=== PATIENT | female | born 1985 | race Hispanic/Latino ===

== ENCOUNTER 2020-10-18 06:56 | Emergency (ER) | payer SELFPAY ==
--- OUTSIDE RECORDS SUMMARY | 2020-10-18 07:01 | XMS REPORT | Continuity of Care Document ---
:1985 Author Organization [facility] t Address [address] [place] [address] Care Team Providers Name Role Phone Ted Webber Attending Clinician Ted Webber Admitting Clinician Problems Condition Condition Condition Status Onset Resolution Last Treating Co mments Source Name Details Category Date Date Treatment Clinician Date BACK PAIN Diagnosis Active 2017-032018-02-11 Memoria -15 07:30:00 l BACK 00:00: Homer PAIN 00 Active 02/11/2018 [facility] [place][note 2] LEUKOCYTOS Diagnosis Active 2017-032018-04-12 Memoria IS, 04-13 14:35:00 l THROMBOCYT 00:00: [place] n OPENIA, LEUKOCYTOS 00 PELVIC M IS, THROMBOCYT OPENIA, PELVIC M Active 02/11/2018 [facility] [place][note 2] Pelvic Pelvic Disease Active 2017- Henson pain pain 5-23 Health 00:00: 00 Severe Problem 2018-09-12 Memor ia sepsis 13:16:02 l without Severe Homer septic sepsis shock without septic shock 09/12/2018 [facility] [place][note 2] Type 2 Problem 2018-09-12 Memor ia diabetes 13:16:02 l mellitus Type 2 [place] n with diabetes hyperglyce mellitus adal with hyperglyce adal 09/12/2018 [facility] [place][note 2] Hypovolemi Problem 2018-09-12 M emoria a 13:16:02 l Homer Hypovolemi a 09/12/2018 [facility] [place][note 2] Anxiety Problem 2018-09-12 Yefri joaquin disorder, 13:16:02 l unspecifie Anxiety Her green d disorder, unspecifie d 09/12/2018 [facility] [place][note 2] Iron Problem 2018-09-12 Memor ia deficiency 13:16:02 l anemia, Iron Homer unspecifie deficiency d anemia, unspecifie d 09/12/2018 [facility] [place][note 2] Methicilli Problem 2018-09-12 M emoria n 13:16:02 l susceptibl [place] e Methicilli Staphyloco n ccus susceptibl aureus e infection Staphyloco as the ccus cause of aureus diseases infection classified as the elsewhere cause of diseases classified elsewhere 09/12/2018 [facility] [place][note 2] Essential Problem 2018-09-12 Me moria (primary) 13:16:02 l hypertensi [place] n on Essential (primary) hypertensi on 09/12/2018 [facility] [place][note 2] 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) 13:16:02 l use of Long Jomar oral term hypoglycem (current) ic drugs use of oral hypoglycem ic drugs 09/12/2018 [facility] [place][note 2] Thrombocyt Problem 2018-09-12 M emoria openia, 13:16:02 l unspecifie [place] n d Thrombocyt openia, unspecifie d 09/12/2018 [facility] [place][note 2] ELEVATED Diagnosis Active 2018-04-12 M emoria WHITE 14:35:00 l BLOOD CELL ELEVATED He rmann COUNT, WHITE UNSPECI BLOOD CELL COUNT, UNSPECI Active [facility] [place][note 2] THROMBOCYT Diagnosis Active 2018-04-12 Memoria OPENIA, 14:35:00 l UNSPECIFIE [place] n D THROMBOCYT OPENIA, UNSPECIFIE D Active [facility] [place][note 2] INTRA-ABD Diagnosis Active 2018-04-12 Memoria AND PELVIC 14:35:00 l SWELLING, Homer MASS AND INTRA-ABD AND PELVIC SWELLING, MASS AND Active [facility] [place][note 2] Toxic Problem 2018-09-12 Memor ia encephalop 13:16:02 l athy Toxic Jomar encephalop athy 9 [facility] [place][note 2] Cutaneous Problem 2018-09-12 Me moria abscess of 13:16:02 l buttock Homer Cutaneous abscess of buttock 09/12/2018 [facility] [place][note 2] Cutaneous Problem 2018-09-12 Me moria abscess of 13:16:02 l right Jomar lower limb Cutaneous abscess of right lower limb 09/12/2018 [facility] [place][note 2] Cellulitis Problem 2018-09-12 M emoria of 13:16:02 l unspecifie [place] n d part of Cellulitis limb of unspecifie d part of limb 9 [facility] [place][note 2] Syndrome Problem 2018-09-12 Mem oria of 13:16:02 l inappropri Syndrome He rmann ate of secretion inappropri of ate antidiuret secretion ic hormone of antidiuret ic hormone 09/12/2018 [facility] [place][note 2] Mass of Mass of Disease Active [place] urethra urethra Health Urethral Urethral Disease Active [facility] s diverticul diverticul He alth um um Type 2 Type 2 Disease Active [place] diabetes diabetes Health mellitus mellitus with with complicati complicati on, on, without without long-term long-term current current use of use of insulin insulin History of Past Illness Condition Condition Condition Status Onset Resolution Last Treating Co mments Source Name Details Category Date Date Treatment Clinician Date Sepsis, Problem 2017-2018-09-12 2018-09-12 Memoria unspecifie 2-04 13:16:02 13:16:02 l d organism Sepsis, 04:42: Her green unspecifie 00 d organism 03/02/2018 09/12/2018 [facility] [place][note 2] Allergies, Adverse Reactions, Alerts This patient has no known allergies or adverse reactions. Family History Family Member Diagnosis Comments Start Date Stop Date Source Natural father Diabetes Merged with [facility] Social History Social Habit Start Date Stop Date Quantity Comments Source Sex Assigned At [facility] alth Tobacco use and 2018-09-09 2018-09-09 Never used [facility] alth exposure 00:00:00 00:00:00 Alcohol intake 2018-09-09 2018-09-09 Current drinker [facility] 00:00:00 00:00:00 of alcohol (finding) History [facility] Food 2018-09-09 2018-09-09 1 [facility] Worry 00:00:00 00:00:00 History [facility] Food 2018-09-09 2018-09-09 1 [facility] Scarcity 00:00:00 00:00:00 Social History 2018-02-11 2018-02-11 [facility] ermann 16:26:22 16:26:22 Smoking Status Start Date Stop Date Source Never smoker [facility] Medications Ordered Filled Start Stop Current Ordering Indication Dosage Frequency Signature Comments Components Source Medication Medication Date Date Medication? Clinician (SIG) Name Name metFORMIN 2018- Yes Type 2 500mg QD Take 1 Александр ris (GLUCOPHAGE 6-13 diabetes tablet by Health XR) 500 mg 00:00: mellitus mouth ER extended 00 with daily release complicatio (with tablet n, without breakfast) long-term . current use of insulin traZODone Yes Insomnia, 50mg Take 1 H arris (DESYREL) 09-09 unspecified tablet by [facility] 50 mg 00:00: type mouth tablet 00 nightly at bedtime as needed for Sleep. lisinopril 2017-03 Yes 20 mg = 1 Me moria 20 mg oral 1-27 tab, PO, l tablet 16:31: Daily, # Jomar 00 30 tab, 3 Refill(s), Pharmacy: [facility] [id number] fructooligo 2017-03 Yes 1 tab, Yefri joaquin saccharide -27 CHEW, BID, l 200 MG / 15:49: # 28 tab, Herm haris Lactobacill 00 0 us Refill(s), acidophilus Pharmacy: [id number] [facility] Chewable 2256 Tablet Aspirin 81 2017-03 Yes 81 mg = 1 Me moria MG Enteric -27 tab, PO, l Coated 15:49: Daily, Homer Tablet 00 just for 30 days due to high platelets. Followup w/ primary doctor for labs check., # 30 tab, 0 Refill(s), Pharmacy: [facility] ferrous 2017-03 Yes 325 mg = 1 Yefri joaquin sulfate 325 1-27 tab, PO, l mg oral 15:49: Daily, # [place] n enteric 00 30 tab, 0 coated Refill(s), tablet Pharmacy: [facility] BD 1.4 qt 2017-03 Yes 1 Maggi de jesus home sharps 04-25 MISC, l container 15:42: Q30D, Use Her green 00 for disposal of needles, # 1 ea, 11 Refill(s), Pharmacy: [facility] 2256 Blood 2017-03 Yes 1 box, Saloria Glucose 04-25 MISC, l Test Strips 15:42: TID-Before Jomar 00 Meals, # 100 strip, 3 Refill(s), Pharmacy: [facility] insulin 2017-03 Yes 15 unit, Memori a isophane 04-25 SUB-Q, l (NPH) 100 15:42: BID, # 10 Her green units/mL 00 mL, 3 human Refill(s), recombinant Pharmacy: [facility] suspension 2256 Accu-Chek 2017-03 Yes , # 100 Memor ia Safe-T Pro+ 04-25 ea, l Lancets 15:42: Insulin Jomar 00 dependent, Does not use insulin pump, Last DM eval date 02/23/18, 11 Refill(s), Pharmacy: [facility] Diabetes 2017-03 Yes 1 ea, Memoria Self-Mangem 04-25 MISC, l ent 15:42: Daily, # 1 Jomar Training 00 ea, 0 Refill(s), Pharmacy: [facility] Mini-Pen 2017-03 Yes 1 box, Memoria Ozan 04-25 MISC, l Ultra Fine 15:42: Daily, Monica ortega 06/12 in, 31 00 dispense 1 gauge box of 90 needles, # 1 box, 3 Refill(s), Pharmacy: [facility] Insulin 2017-03 Yes 1 syr, Memoria Syringes (U 04-25 SUB-Q, l 100) 15:42: ONCALL, # Jomar 00 100 syr, 3 Refill(s), Pharmacy: [facility] Alprazolam 2017-03 No 0.5 mg = 1 M emoria 0.5 MG Oral 04-25 tab, PO, l Tablet 15:42: TID, PRN Jomar [Xanax] 00 Anxiety, X 10 day, # 30 tab, 0 Refill(s) Alcohol 2017-03 Yes 1 ea, TOP, Yefri joaquin Pads/Swabs 04-25 PRN, PRN l Misc/Other 15:42: As Jomar 00 directed by physician, # 100 ea, 11 Refill(s), Pharmacy: [facility] Docusate 2017-03 No 2 tab, PO, Mem oria Sodium 50 04-25 Daily, PRN l MG / 15:42: Constipati Jomar sennosides, 00 on, X 10 INTERMEDIATE 8.6 MG day, # 20 Oral Tablet tab, 1 Refill(s), Pharmacy: [facility] Glucose 2017-03 Yes 1 ea, Memoria Control 04-25 MISC, l Solution 15:42: Daily, # 1 Her green 00 ea, 0 Refill(s), Pharmacy: [facility] Alprazolam 2017-03 No Notes: Memor ia 0.5 MG Oral 04-25 With food l Tablet 15:41: or milk Jomar [Xanax] 00 (Same as: Xanax) Acetaminoph 2017-03 No 1 tab, PO, Memoria en 300 MG / 04-24 Q6H, PRN l Codeine 19:07: pain, X 5 Monica nn Phosphate 00 day, # 20 30 MG Oral tab, 0 Tablet Refill(s) [Tylenol with Codeine #3] Ondansetron 2017-03 Yes 4 mg = 1 Me moria 4 MG Oral 04-24 tab, PO, l Tablet 19:07: QID, PRN Jomar [Zofran] 00 Nausea & Vomiting, # 20 tab, 0 Refill(s), Pharmacy: [facility] cefdinir 2017-03 No 300 mg = 1 Mem oria 300 MG Oral 04-24 cap, PO, l Capsule 19:07: Q12H, X 14 Herm haris day, # 28 cap, 0 Refill(s), Pharmacy: [facility] Hydromorpho 2017-03 No Notes: Yefri joaquin ne 04-23 Same as l 16:20: Dilaudid Jomar 00 Dilaudid 2017-03 No Notes: Memoria 04-22 Same as l 19:09: Dilaudid Jomar 00 ketOROLAC 2017-03 No 4 days Memor ia 30 mg/mL 04-21 l injectable 18:00: MEDICATION H ermann solution WASTE Product Size: 30 mg Product Wasted: ___ mg acetaminoph 2017-03 No Notes: Do M emoria en-hydrocod 04-21 not exceed l one 17:00: 4gm/day of Jomar acetaminop hen. (Same as: Arrey 325/10) Dilaudid 2017-03 No Notes: Memoria 04-21 Same as l 16:16: Dilaudid Jomar 00 tramadol 50 2017-03 No Notes: Not Memoria mg oral 04-21 to exceed l tablet 16:15: 400mg/day. Monica nn 00 (Same As: Ultram) Humulin N 2017-03 No Notes: Memori a -22 Roll in l 15:00: palms of Jomar 00 hands gently; Do not shake vigorously . (Same as: Humulin N) Do not hold insulin without contacting prescriber WASTE: F/P - Black; E - Municipal Trash Bin Stable for 28 days at room temperatur e Expires in days from ____Date Humulin N 2017-03 No Notes: Memori a 1-21 Roll in l 23:00: palms of Homer 00 hands gently; Do not shake vigorously . (Same as: Humulin N) Do not hold insulin without contacting prescriber WASTE: F/P - Black; E - Municipal Trash Bin Stable for 28 days at room temperatur e Expires in days from ____Date Dilaudid 2017-03 No Notes: Memoria 1-21 Same as l 01:10: Dilaudid Jomar 00 Senokot S 2017-03 No Notes: Memori a 1-20 (Same as l 18:30: Senokot-S) Homer 00 Equiv. to Louise-Colac e. Lovenox 2017-03 No Notes: Memoria 1-20 (Same as: l 15:00: Lovenox) Homer 00 Potassium 2017-03 No Notes: Memori a Chloride 1-20 (Same as: l 13:41: K-Dur 20) Homer 00 "Do Not Crush" For patients unable to swallow tablet, dissolve in one half glass of water. Allow about 2 minutes for the tablets to disintegra te. Stir before giving to prepare slurry and administer . Please exclude Patient s with feeding tube less than 14 [place] (Dobhoff, J-tube etc) and pediatric and patients. With food and full glass of water Trazodone 2017-03 No Notes: Memori a 1-20 (Same As: l 03:11: Desyrel) Jomar Dextrose 2017-03 No 25 gm, 50 Yefri joaquin 50% Syringe 1-19 mL, Route: l 19:49: IVP, Drug Form: INJ, Dosing Weight 95.455, kg, PRN, PRN Blood Glucose Results, Start date: 02/15/18 13:49:00 MACHINE SORTER, Duration: 30 day, Stop date: 03/17/18 13:48:00 MACHINE SORTER Glucagon 2017-03 No 1 mg, Memoria 04-17 Route: IM, l 19:49: Drug form: PDR/INJ, PRN, Dosing Weight 95.455, kg, PRN Blood Glucose Results, Start date: 02/15/18 13:49:00 MACHINE SORTER, Duration: 30 day, Stop date: 03/17/18 13:48:00 MACHINE SORTER Insulin 2017-03 No Notes: Memoria Lispro - (Same as: l 19:49: Humalog ) Roll in palms of hands gently; Do not shake `vigorousl y. "Single Patient Use Only " WASTE: F/P - Black; E - Municipal Trash Bin Stable for 28 days at room temperatur e. Expires in days from ____Date Nafcillin 2017-03 No 2 gm, Memoria 04-17 Route: l 18:00: IVPB, Q6H, Dosing Weight 95.455, kg, Start date: 02/15/18 12:00:00 MACHINE SORTER, Stop date: 03/17/18 8:00:00 MACHINE SORTER Diphenhydra 2017-03 No Notes: Yefri joaquin mine 04-17 (Same as: l 04:36: Benadryl) Alprazolam 2017-03 No Notes: Memor ia 0.25 MG 04-16 With food l Oral Tablet 15:57: or milk Her green [Xanax] 00 (Same as: Xanax) potassium 2017-03 No Notes: Memori a phosphate -18 (Same as: l 15:08: K Phosphate. ) Do not infuse phosphorou s concurrent ly in the same line as TPN or IVF that contains calcium. For double lumen central lines, phosphorou s may be infused in a separate lumen from TPN. 1 mMol phoshate has 1.47 mEq potassium Infuse over 4 hours Folic Acid 2017-03 No Notes: Memor ia 1-17 (Same as: l 15:00: Folvite) Thiamine 2017-03 No Notes: Memoria 1-17 (Same As: l 15:00: Vitamin B1) multivitami 2017-03 No Notes: Yefri joaquin n with 1-17 (Same l minerals 15:00: as:Thera-M Her green 00 , Theragran- M) WASTE: F/P - Black; E - Municipal Trash Bin Give with food. Sodium 2017-03 No 250 mL, Memoria Chloride 04-15 Rate: To l 0.9% 10:16: prime line Jomar (titrate) 00 and flush 250 mL remaining blood products., Dosing Weight 95.455, kg, Route: IV, Total Volume: 250, Priority: Routine, Start Date: 02/13/18 4:16:00 MACHINE SORTER, Duration: 30 day, Stop date: 03/15/18 4:15:00 MACHINE SORTER, Replace Every: 24 hr Calcium 2017-03 No Notes: Memoria Carbonate 04-14 (Same As: l 500 MG 17:48: Tums) Jomar Chewable 00 Calcium Tablet Carbonate 500 mg = 200 mg elemental calcium Dose = mg calcium carbonate ( mg elemental calcium) Calcium 2017-03 No Notes: Memoria Gluconate 04-14 WASTE: F/P l 17:48: - Sink; E Jomar 00 - Municipal Trash Bin Magnesium 2017-03 No Notes: Memori a Oxide 04-14 (Same as: l 17:48: Mag-Ox Homer 00 400) Magnesium oxide 778qu=727m g elemental magnesium Dose=____m g magnesium oxide (___mg elemental magnesium) potassium 2017-03 No Notes: Memori a phosphate 04-14 (Same as: l 17:48: K Homer 00 Phosphate. ) Do not infuse phosphorou s concurrent ly in the same line as TPN or IVF that contains calcium. For double lumen central lines, phosphorou s may be infused in a separate lumen from TPN. 1 mMol phoshate has 1.47 mEq potassium Infuse over 4 hours Magnesium 2017-03 No Notes: Memori a Sulfate 04-14 WASTE: F/P l 17:48: - Sink; E Homer 00 - Municipal Trash Bin potassium 2017-03 No Notes: Memori a phosphate-s 16 (Same as: l odium 17:48: Phos-NaK) Jomar phosphate 00 Each 1.5 250 mg-280 gm pkt has mg-160 mg 250mg oral powder phosphorou for s. Mix reconstitut w/2.5oz ion water and stir. Potassium 2017-03 No Notes: Memori a Chloride -16 Infuse at l 17:48: a rate of Jomar 00 10 mEq/hr. (Same as: KCL) sodium 2017-03 No Notes: Memoria phosphate 1-16 Infuse l 17:48: over 4 Homer 00 hour. Do not infuse phosphorou s concurrent ly in the same line as TPN or IVF that contains calcium. For double lumen central lines, phosphorou s may be infused in a separate lumen from TPN. Insulin 2017-03 No Notes: Memoria Glargine -16 (Same as: l 100 UNT/ML 16:00: Lantus) Do H ermann Injectable 00 not hold Solution insulin without contacting prescriber WASTE: F/P - Black; E - Municipal Trash Bin "single patient use only" Zofran 2017-03 No Notes: Memoria 1-16 (Same as: l 15:55: Zofran) Jomar 00 MEDICATION WASTE Product Size: 4 mg Product Wasted: ___ mg Lisinopril 2017-03 No Notes: Memor ia -16 (Same as: l 15:00: Prinivil, Homer 00 Zestril) heparin 2017-03 No Notes: Memoria 1-16 porcine l 03:00: heparin Homer Dextrose 2017-03 No 12.5 gm, Memor ia 50% Syringe -16 25 mL, l 01:04: Route: Jomar 00 IVP, Drug Form: INJ, Dosing Weight 95.455, kg, PRN, PRN Blood Glucose Results, Start date: 02/11/18 19:04:00 MACHINE SORTER, Duration: 30 day, Stop date: 03/13/18 19:03:00 MACHINE SORTER Insulin 2017-03 No Notes: Memoria regular 100 1-16 (Same as: l unit + 01:04: Humulin R [place] n Sodium 00 and Chloride NovoLIN R) 0.9% WASTE: (titrate) F/P - 99 mL Black; E - Municipal Trash Bin (Do not shake) Protonix 2017-03 No Notes: For Mem oria 1-15 IV push l 22:30: reconstitu Homer 00 te with 10 ml 0.9% sodium chloride and push over 2 minutes. (Same as: Protonix) Zosyn 2017-03 No Notes: Memoria 1-15 (Same as: l 22:00: Zosyn) Jomar 00 Dosing based on Piperacill in component MEDICATION WASTE Product Size: 3375 mg Product Wasted: _0__ mg Vancomycin 2017-03 No 2000 mg: Me moria 1-15 infuse l 22:00: over 2.5 Homer 00 hours Dextrose 2017-03 No 25 gm, 50 Yefri joaquin 50% Syringe 1-15 mL, Route: l 21:39: IVP, Drug Homer 00 Form: INJ, Dosing Weight 95.455, kg, PRN, PRN Blood Glucose Results, Start date: 02/11/18 15:39:00 MACHINE SORTER, Duration: 30 day, Stop date: 03/13/18 15:38:00 MACHINE SORTER Glucagon 2017-03 No 1 mg, Memoria 1-15 Route: IM, l 21:39: Drug form: Homer 00 PDR/INJ, PRN, Dosing Weight 95.455, kg, PRN Blood Glucose Results, Start date: 02/11/18 15:39:00 MACHINE SORTER, Duration: 30 day, Stop date: 03/13/18 15:38:00 MACHINE SORTER Insulin 2017-03 No Notes: Memoria Lispro 1-15 (Same as: l 21:39: Humalog ) Jomar 00 Roll in palms of hands gently; Do not shake `vigorousl y. "Single Patient Use Only " WASTE: F/P - Black; E - Municipal Trash Bin Stable for 28 days at room temperatur e. Expires in days from ____Date Acetaminoph 2017-03 No 100.4 F, M emoria en 1-15 Start l 21:28: date: Homer 00 02/11/18 15:28:00 MACHINE SORTER, Duration: 30 day, Stop date: 03/13/18 15:27:00 MACHINE SORTER Sodium 2017-03 No 2,863.65 Memoria Chloride 1-15 mL, l 0.9% 21:27: 2863.65 Jomar (Bolus) IV 00 ml/hr, Infuse Over: 1 hr, Route: IV, 3.65, Drug form: INJ, ONCE, Priority: STAT, Dosing Weight 95.455 kg, Start date: 02/11/18 15:27:00 MACHINE SORTER, Stop date: 02/11/18 15:27:00 MACHINE SORTER Acetaminoph 2017-03 No Notes: Yefri joaquin en 325 MG / -15 (Same as: l Hydrocodone 17:03: Arrey Monica nn Bitartrate 00 325/5) Do 5 MG Oral not exceed Tablet 4gm/day of acetaminop hen. Dilaudid 2017-03 No Notes: Memoria 1-15 Same as l 17:01: Dilaudid Jomar 00 NS 1,000 mL 2017-03 No 1,000 mL, M emoria 15 Rate: 40 l 17:00: ml/hr, Homer 00 Infuse over: 25 hr, Route: IV, Dosing Weight 95.455 kg, Total Volume: 1,000, Start date: 02/11/18 11:00:00 MACHINE SORTER, Duration: 30 day, Stop date: 03/13/18 11:00:00 MACHINE SORTER, 2.12, m2 Acetaminoph 2017-03 No Notes: Do M emoria en -15 not exceed l 16:59: 4 gm/day. Jomar 00 (Same as: Tylenol) Morphine 2017-03 No Notes: Memoria 15 (Same l 16:10: as:MORPhin Jomar 00 e Sulfate) ibuprofen 2017-03 No 600 mg = 1 Me moria 600 mg oral 1-15 tab, PO, l tablet 14:23: Q6H, PRN Jomar 00 Pain, take with food, # 30 tab, 0 Refill(s) Metformin 2017-03 No 500 mg = 1 Me moria hydrochlori 1-15 tab, PO, l de 500 MG 14:21: Daily, 0 Herm haris Oral Tablet 00 Refill(s) lisinopril 2017-03 No 20 mg = 1 Me moria 20 mg oral 1-15 tab, PO, l tablet 14:20: Daily, # Homer 00 90 tab, 0 Refill(s) Famotidine 2017-03 Yes 20 mg = 1 Me moria 20 MG Oral 1-15 tab, PO, l Tablet 14:19: Daily, # Jomar [Pepcid] 00 60 tab, 0 Refill(s) Morphine 2017-03 No 4 mg, Memoria 1-15 Route: l 13:52: IVP, ONCE, Jomar 00 Dosing Weight 90.909, kg, Priority: STAT, Start date: 02/11/18 7:52:00 MACHINE SORTER, Stop date: 02/11/18 7:52:00 MACHINE SORTER Sodium 2017-03 No 1,000 mL, Memori a Chloride 1-15 1000 l 0.9% 12:33: ml/hr, Jomar (Bolus) IV 00 Infuse Over: 1 hr, Route: IV, 1,000, Drug form: INJ, ONCE, Priority: STAT, Dosing Weight 90.909 kg, Start date: 02/11/18 6:33:00 MACHINE SORTER, Stop date: 02/11/18 6:33:00 MACHINE SORTER Saline 2017-03 No Notes: Memoria Flush 0.9% 1-15 (Same as: l 12:33: BD Homer Posiflush) Morphine 2017-03 No Notes: Memoria 1-15 (Same l 12:33: as:MORPhin e Sulfate) Ondansetron 2017-03 No Notes: Yefri joaquin 1-15 (Same as: l 12:33: Zofran) Jomar 00 MEDICATION WASTE Product Size: 4 mg Product Wasted: ___ mg cyclobenzap 2017-03 Yes Acute 10mg Take 1 Александр ris rine 1-02 left-sided tablet by [facility] (FLEXERIL) 00:00: low back mouth 3 10 mg 00 pain, with times tablet sciatica daily as presence needed for unspecified Muscle Spasms. predniSONE 2017-03 Yes Acute 40 mg Harri s (DELTASONE) 1-02 left-sided daily PO [facility] 20 mg 00:00: low back 3 days tablet 00 pain, with followed sciatica by 20 mg presence PO daily X unspecified 3days with breakfast. acetaminoph Yes Pelvic pain 1{tbl} Take 1 Henson en-codeine 5-26 tablet [address] [facility] (TYLENOL/CO 00:00: mouth DEINE #3) 00 every 4 300-30 mg hours as per tablet needed for Pain. ondansetron 2014-03 Yes Epigastric 4mg Take 1 Henson (ZOFRAN) 4 2-01 abdominal tablet by [facility] mg tablet 00:00: pain mouth 00 every 8 hours as needed for up to 7 doses for Nausea. Immunizations Ordered Immunization Filled Immunization Date Status Commen ts Source Name Name PPV 23 (Pneumococcal 2018-09-09 Completed [facility] Polysaccharide 23 00:00:00 Valent) Vital Signs Vital Name Observation Time Observation Value Comments Source Respitory Rate 2018-02-23 17:33:00 Memori al Jomar Systolic (mm Hg) 2018-02-23 17:33:00 Yefri rial Jomar Diastolic (mm Hg) 2018-02-23 17:33:00 Mem orial Homer Heart Rate 2018-02-23 17:33:00 [facility] Jomar Temperature Oral (F) 2018-02-23 17:33:00 98.3 F [facility] [place] Respitory Rate 2018-02-23 13:21:00 Memori al Homer Systolic (mm Hg) 2018-02-23 13:21:00 Yefri rial Homer Diastolic (mm Hg) 2018-02-23 13:21:00 Mem orial Jomar Temperature Oral (F) 2018-02-23 13:21:00 98.6 F Memorial Jomar Heart Rate 2018-02-23 13:21:00 [facility] [place] Heart Rate 2018-02-23 10:00:00 [facility] Jomar Respitory Rate 2018-02-23 10:00:00 Memori al Jomar Temperature Oral (F) 2018-02-23 10:00:00 98.4 F [facility] [place] Systolic (mm Hg) 2018-02-23 10:00:00 Yefri rial Homer Diastolic (mm Hg) 2018-02-23 10:00:00 Mem orial Homer BMI Calculated 2018-02-11 16:22:00 Memori al Homer Weight 2018-02-11 16:22:00 [facility] Jomar Height 2018-02-11 16:22:00 165.1 cm Memorial Homer BMI Calculated 2018-02-11 11:53:00 Memori al Homer Weight 2018-02-11 11:53:00 [facility] Jomar Height 2018-02-11 11:53:00 165.1 cm [facility] Jomar Procedures This patient has no known procedures. Plan of Care Planned Activity Planned Date Details Comments Source Future Scheduled Test 2020-12-28 00:00:00 IMM Influenza Seasonal [facility] Dec to May (>/= 19 yrs) [code = IMM Influenza Seasonal Dec to May (>/= 19 yrs)] Future Scheduled Test 2019-09-10 00:00:00 Hemoglobin A1c [facility] measurement (procedure) [code = 76001227] Future Scheduled Test 2019-09-10 00:00:00 Urine screening for [facility] protein (procedure) [code = 046375388] Future Scheduled Test 2019-09-10 00:00:00 DM Retinal Exam [facility] (Yearly) [code = DM Retinal Exam (Yearly)] Future Scheduled Test 2015 00:00:00 Screening for [facility] malignant neoplasm of cervix (procedure) [code = 877547867] Future Scheduled Test 2015 00:00:00 Screening for [facility] malignant neoplasm of cervix (procedure) [code = 405916413] Future Scheduled Test 2003 00:00:00 DM Foot Exam (Yearly) [facility] [code = DM Foot Exam (Yearly)] Future Scheduled Test 1997 00:00:00 COVID-19 Vaccine (1) [facility] [code = COVID-19 Vaccine (1)] Encounters Start End Encounter Admission Attending Care Care Encounter Source Date/Time Date/Time Type Type Clinicians Facility Department ID 2018-09-09 2018-09-09 Outpatient [facility] [id number] [place] 00:00:00 00:00:00 Health 2018-06-23 2018-06-23 Outpatient [facility] [id number] [place] 00:00:00 00:00:00 Health 2018-06-04 2018-06-04 Outpatient [facility] [id number] [place] 00:00:00 00:00:00 Health 2018-02-11 2018-02-23 Outpatient [facility] [id number] 05:46:00 14:30:00 Justin Pugh Chim[place]nneze 2018-01-29 2018-01-29 Emergency [facility] MED [id number] [place] 12:48:40 12:48:40 [facility] 2016-08-19 2016-08-19 Emergency [facility] [id number] [place] 14:53:00 14:53:00 Health Results Test Description Test Time Test Comments Results Result Comments Source ANEMIA STUDY 2018-02-23 76 [facility] 12:55:00 [place] ANEMIA STUDY 2018-02-23 10 [facility] 12:55:00 Jomar ANEMIA STUDY 2018-02-23 244 [facility] 12:55:00 [place] ANEMIA STUDY 2018-02-23 219 [facility] 12:55:00 Jomar ANEMIA STUDY 2018-02-23 25 [facility] 12:55:00 [place] ELECTROLYTES 2018-02-23 13.2 [facility] 12:54:00 Jomar ELECTROLYTES 2018-02-23 10 [facility] 12:54:00 Jomar ELECTROLYTES 2018-02-23 142 [facility] 12:54:00 Jomar ELECTROLYTES 2018-02-23 104 [facility] 12:54:00 [place] ELECTROLYTES 2018-02-23 4.2 [facility] 12:54:00 Jomar ELECTROLYTES 2018-02-23 29 [facility] 12:54:00 [place] ELECTROLYTES 2018-02-23 92 [facility] 12:54:00 [place] ELECTROLYTES 2018-02-23 9.0 [facility] 12:54:00 [place] ELECTROLYTES 2018-02-23 118 [facility] 12:54:00 Jomar ELECTROLYTES 2018-02-23 0.84 [facility] 12:54:00 Jomar HEMATOLOGY 2018-02-23 34.7 [facility] 12:54:00 Jomar HEMATOLOGY 2018-02-23 54.0 [facility] 12:54:00 [place] HEMATOLOGY 2018-02-23 6.6 [facility] 12:54:00 [place] HEMATOLOGY 2018-02-23 3.2 [facility] 12:54:00 Jomar HEMATOLOGY 2018-02-23 3.6 [facility] 12:54:00 [place] HEMATOLOGY 2018-02-23 1.1 [facility] 12:54:00 Jomar HEMATOLOGY 2018-02-23 0.4 [facility] 12:54:00 Jomar HEMATOLOGY 2018-02-23 2.1 [facility] 12:54:00 [place] HEMATOLOGY 2018-02-23 0.2 [facility] 12:54:00 Jomar HEMATOLOGY 2018-02-23 0.1 [facility] 12:54:00 [place] HEMATOLOGY 2018-02-23 2+ [facility] 12:54:00 *ABN*(02/23/18 [place] 6:54 AM) HEMATOLOGY 2018-02-23 23.1 [facility] 12:54:00 [place] HEMATOLOGY 2018-02-23 922 [facility] 12:54:00 Jomar HEMATOLOGY 2018-02-23 6.6 [facility] 12:54:00 Jomar HEMATOLOGY 2018-02-23 3.78 [facility] 12:54:00 [place] HEMATOLOGY 2018-02-23 9.0 [facility] 12:54:00 Jomar HEMATOLOGY 2018-02-23 72.8 [facility] 12:54:00 Jomar HEMATOLOGY 2018-02-23 27.5 [facility] 12:54:00 [place] HEMATOLOGY 2018-02-23 12:54:00 Test Item Value Reference Range Interpretation Comme nts MCH (test code = MCH) 23.9 pg 27.0-31.0 [facility] VujobkoENJUBZIMFC7212-31-60 12:54:0032.8[facility] HermannHEMATOLOGY 2018-02-23 12:54:006.0[facility] KadoyulFJCFKYAUIU4511-15-44 09:28:006.3[facility] SujziwjOPIZCSPDPE1559-80-36 09:28:006.7[facility] QdmomiyGCYTKIQESL9847-47-31 09:28:94951Cgiadytt NdevegeXHKLDHHGGK2894-01-97 09:28:00 Test Item Value Reference Range Interpretation Comments MCH (test code = MCH) 23.5 pg 27.0-31.0 [facility] QskvowyWLGTECHWJU1407-12-66 09:28:0071.9[facility] HermannHEMATOLOGY 2018 09:28:0026.9[facility] NsllovqAMUZZVUYKD4914-91-11 09:28:008.8[facility] OruzgojCPLHETECES0550-02-23 09:28:0022.9[facility] ZlgurlxAIHCSZNCFW4025-47-72 09:28:0032.6[facility] SjpfxweVJRGGBOQFC7409-05-77 09:28:003.9[facility] LYUQHURXEQ5353-20-03 09:28:000.3[facility] FlypflkEMYDNOQBXY4338-93-98 09:28:002+ *ABN*(02/21/18 3:28 AM)[facility] SezcayqXRNXUSIHFJ7414-54-37 09:28:001.7[facility] GcfenxkQSOHKDUVJS3261-57-38 09:28:000.1[facility] BgkytwtLOCJLTGVHK3718-48-52 09:28:000.4[facility] EkmiqjvDWKJQFHXGD2158-54-05 09:28:001.0[facility] SQOZDXTIIY4518-91-98 09:28:006.7[facility] VtpbvndTRYUASDOUG0510-41-45 09:28:00 61.1[facility] DnhbqpjELLTRONYJY0970-71-32 09:28:004.7[facility] HermannHEMATOLOGY 2018 09:28:0026.5[facility] NcovbiyERKFSMOAFEBN9106-07-46 09:28:61873 [facility] JcfnjlaWGBUBGSAISEY4550-91-26 09:28:004.2[facility] HermannELECTROLYTES 2018 09:28:99606Kpdbknsd ItfptnrEEUZCISHHWQK6801-65-24 09:28:0027[facility] RrucuwnLKTAIJUEHQGT8574-86-52 09:28:008.9[facility] ZradnwaDNZLPGWLEWKI7257-75-38 09:28:16522Qhvzwrzl RboydowFTZONONWOQEH1157-78-78 09:28:008[facility] YQBWTZXHPRGB3387-61-38 09:28:65411Trgwmzwk AqzcxulJLPFCQHMBNXS5411-99-71 09:28:000.77[facility] HkmilmmGXURHDYDERNA5581-87-72 09:28:0014.2[facility] ATHNESFEYY0024-92-04 09:28:003.74[facility] HiitmstXONWPXOIRHNO4555-52-45 10:11:00 102[facility] MhijmxsNMXLVPGDBXSS5258-90-18 10:11:007.9[facility] TRQBTVYSMRWQ3533-97-36 10:11:003.6[facility] RxtsozvEOVXYAHZLLPL3405-06-90 10:11:19101Qaczzjun OwxujjsPRLCYMFENMWO8388-68-18 10:11:22027Dhaecryk Jomar FQITAPSOPHUW3651-90-02 10:11:0030[facility] FfvyhdbXZURNHOIAXQW7122-17-66 10:11:00 0.57[facility] MdevdzfGERRVREBJSAY5810-92-16 10:11:49818Ywqfjruq Jomar RMQCMTSEKBUO8043-74-05 10:11:005[facility] DerbjutSYSFOANXJDLE6000-80-47 10:11:00 13.6[facility] JqpcgmfNRASRTPNKA0926-85-80 10:11:63472Hpnhrtec HermannHEMATOLOGY 2018-02-19 10:11:0022.3[facility] KhaiywaGGSLQKJRMI2283-05-24 10:11:006.8[facility] DvbetftQPOCMOSFUS7132-86-55 10:11:006.4[facility] RwuehkrBBPVILWIJK2512-91-96 10:11:003.56[facility] VlpujywFYPXHPEYAN0956-54-55 10:11:0025.7[facility] QMYGGREWSI4244-58-96 10:11:0032.4[facility] HltibdqGVCNEEORYN9320-09-54 10:11:00 8.3[facility] FwggvflHUAWLCAQGM4016-22-04 10:11:00 Test Item Value Reference Range Interpretation Comments MCH (test code = MCH) 23.4 pg 27.0-31.0 [facility] GzevvhuOQKBTABFJS8357-68-31 10:11:0072.2[facility] HermannHEMATOLOGY 2018-02-19 10:11:002+ *ABN*(02/19/18 4:11 AM)[facility]annHEMATOLOGY 2018-02-19 10:11:000.2[facility] UxzbpudXVBNDJFHBN0146-85-98 10:11:000.6[facility] PmhqjngDAQWEUFGSJ8470-77-62 10:11:001.7[facility] QiyozgfQXMNBUQGPB2941-36-59 10:11:0061.7[facility] AmpjgjxMGJGBPBDPR1441-57-41 10:11:000.6[facility] NXNNGLJBXW2706-42-16 10:11:003.2[facility] UffkavjTDVLBBVUCQ4001-76-52 10:11:008.6 [facility] IirleznNDIXXGVRGN4117-78-03 10:11:0025.9[facility] HermannHEMATOLOGY 2018-02-19 10:11:004.0[facility] HermannOXACILLIN:SUSC:PT:ISOLATE:ORDQN:AJ 2018-02-17 13:57:22Staphylococcus aureusMemorial UhtamcmMCHQVZTTEQ9018-39-97 11:02:001+ (02/17/18 5:02 AM)[facility] EubzndrMRFINRHOMB4858-83-34 11:02:00Normal (02/17/18 5:02 AM)[facility] HermannCHEM HTYBZ9285-34-17 10:28:001.2[facility] HermannCHEM SQHZX9579-97-26 10:28:82415Ujfyywig HermannCHEM WNCCD4141-91-44 10:28:0027[facility] HermannCHEM TANWZ0176-82-10 10:28:005.6[facility] HermannCHEM RTUHT0352-13-08 10:28:001.3[facility] HermannCHEM ENMGA5437-33-48 10:28:0017 [facility] HermannCHEM ZPOZX2674-96-50 10:28:00 Test Item Value Reference Range Interpretation Comments A/G Ratio (test code = A/G Ratio) 0.3 1 0.7-1.6 [facility] HermannCHEM EVDTR9844-51-33 10:28:004.3[facility] HermannCHEM PANEL 2018-02-16 10:28:00 Test Item Value Reference Range Interpretation Comments B/C Ratio (test code = B/C Ratio) 15 09-21 [facility] HermannCHEM FHMQE5457-17-51 12:04:00 Test Item Value Reference Range Interpretation Comments B/C Ratio (test code = B/C Ratio) 8 09-21 [facility] HermannCHEM LCRHB4694-27-16 12:04:005.6[facility] HermannCHEM PANEL 2018-02-14 12:04:00 Test Item Value Reference Range Interpretation Comments A/G Ratio (test code = A/G Ratio) 0.3 1 0.7-1.6 [facility] HermannCHEM BVTQD6497-05-71 12:04:0024[facility] HermannCHEM PANEL 2018-02-14 12:04:0034[facility] HermannCHEM KZLHO9559-37-95 12:04:19997Miciwcvm HermannCHEM KATWQ3258-47-04 12:04:000.8[facility] HermannCHEM JRLDP5928-56-27 12:04:007.1[facility] HermannCHEM VXAXK7527-84-17 12:04:001.5[facility] HermannCHEM PTTHP2102-11-97 12:04:001.8[facility] HermannCHEM KMANW7795-39-11 12:04:001.9 [facility] ArswnkdBYITLFJHGK5159-68-12 12:04:000.1[facility] HermannHEMATOLOGY 2018-02-14 12:04:00Moderate *ABN*(02/14/18 6:04 AM)[facility] HermannHEMATOLOGY 2018-02-14 12:04:00Moderate *ABN*(02/14/18 6:04 AM)[facility] HermannBLOOD BANK FAAVWIQ6194-49-77 21:47:00Product available (02/13/18 3:47 PM)[facility] BLOOD B[facility] WMXRXYJ9654-80-50 10:55:00Negative (02/13/18 4:55 AM)[facility] BLOOD [facility] JLWZUVY7618-60-64 10:16:00Product available 7(02/13/18 4:16 AM) [facility] HermannCHEM FHRKQ1555-91-73 09:01:0021.92[facility] HermannCHEM PANEL 2018-02-13 09:01:00 Test Item Value Reference Range Interpretation Comments B/C Ratio (test code = B/C Ratio) 10 1 6-25 [facility] HermannCHEM SQUFH9530-09-75 09:01:0025[facility] HermannCHEM PANEL 2018-02-13 09:01:00 Test Item Value Reference Range Interpretation Comments A/G Ratio (test code = A/G Ratio) 0.4 1 0.7-1.6 [facility] HermannCHEM CWYRH8459-57-82 09:01:60443Eivvakbh HermannCHEM PANEL 2018-02-13 09:01:001.0[facility] HermannCHEM KSNOH7361-50-21 09:01:003.6[facility] HermannCHEM AAPYO3285-46-49 09:01:004.9[facility] HermannCHEM RSENZ8318-40-36 09:01:001.3[facility] HermannCHEM XVQWV5363-12-30 09:01:0018[facility] PVQXQPOFIJ6860-44-20 21:32:003.4[facility] HermannSPECIAL KMEFNKWTU8890-90-47 16:30:0011.0[facility] HermannURINE AND FYCKB0997-70-56 10:21:0080 *ABN*(02/12/18 4:21 AM)[facility]annURINE AND XSJIV0149-38-39 10:21:002[facility] HermannURINE AND ZBIED6054-01-93 10:21:003[facility] HermannURINE AND HZRMN2392-42-20 10:21:00 Negative (02/12/18 4:21 AM)[facility] HermannURINE AND TGVOS5616-98-36 10:21:00 Negative (02/12/18 4:21 AM)[facility]annUR[facility] AND KLVEK0428-79-18 10:21:00 Negative (02/12/18 4:21 AM)[facility]annUR[facility] AND ZBMMT2668-96-33 10:21:00 Negative *NA*(02/12/18 4:21 AM)[facility]annURINE AND FVNZV4089-85-00 10:21:77351Ptafsspv HermannURINE AND ZQHDZ0928-69-87 10:21:00 Test Item Value Reference Range Interpretation Comments UA Spec Grav (test code = UA Spec 1.021 1 Grav) [facility]annUR[facility] AND ASTWI6479-88-83 10:21:00 Test Item Value Reference Range Interpretation Comments UA pH (test code = UA pH) 5.0 1 5.0-8.0 [facility]annUR[facility] AND PDZBU7627-74-37 10:21:00Clear (02/12/18 4:21 AM) [facility]ann[facility] AND UEALA3618-45-99 10:21:00Yellow *NA*(02/12/18 4:21 AM) [facility] HermannCHEM KZAYX9970-90-14 23:18:0058.32[facility] HermannCHEM PANEL 2018-02-11 23:18:001.2[facility] HermannCHEM OWCBS6634-55-60 23:18:002.1[facility] HermannCHEM ORTHH3370-85-49 23:18:001.7[facility] SluquirPFOSUCCSIZ6493-83-66 23:18:00 Test Item Value Reference Range Interpretation Comments INR (test code = INR) 1.44 1 0.85-1.17 [facility] WypkngiBNOJDZWWUN9373-73-60 23:18:00 Test Item Value Reference Range Interpretation Comments PT (test code = PT) 17.6 s 12.0-14.7 [facility] GdoujfpHIAAKDYFHB4680-66-35 23:18:00 Test Item Value Reference Range Interpretation Comments PTT (test code = PTT) 54.1 s 22.9-35.8 [facility] AurdoxyGGKSCQEKNV6254-91-48 23:18:001+ (02/11/18 5:18 PM)[facility] WscoyenLHCQIQKDXV8206-22-94 23:18:00Normal (02/11/18 5:18 PM)[facility] UHYMELSRQV6704-65-28 23:18:59318Fkqrcrjl [place] ERYTHROMYCIN:SUSC:PT:ISOLATE:ORDQN:YVQ6208-50-25 21:00:00Staphylococcus aureus [facility] HermannCHEM XFCGS1155-81-09 18:52:77705Hrsmpcrg HermannIMMUNOLOGY 2018-02-11 18:52:00Positive *ABN*(02/11/18 12:52 PM)[facility] HermannIMMUNOLOGY 2018-02-11 18:52:00Negative *NA*(02/11/18 12:52 PM)[facility] HermannIMMUNOLOGY 2018-02-11 18:52:00Negative *NA*(02/11/18 12:52 PM)[facility] HermannIMMUNOLOGY 2018-02-11 18:52:00Negative *NA*(02/11/18 12:52 PM)[facility] HermannIMMUNOLOGY 2018-02-11 18:52:00Negative *NA*(02/11/18 12:52 PM)[facility] HermannHEMATOLOGY 2018-02-11 15:00:00 Test Item Value Reference Range Interpretation Comments PTT (test code = PTT) 59.5 s 22.9-35.8 [facility] IxdueeqYQMMFQBTHN1060-00-48 15:00:00 Test Item Value Reference Range Interpretation Comments INR (test code = INR) 1.40 1 0.85-1.17 [facility] TmqnwpsFAKKZBZNZD8913-22-14 15:00:00 Test Item Value Reference Range Interpretation Comments PT (test code = PT) 17.2 s 12.0-14.7 [facility] HermannCHEM UIRGE1969-33-08 14:50:001.8[facility] HermannCHEM PANEL 2018-02-11 14:50:0099.58[facility] UknybkqZIUJVXXZGXHBJ9060-35-06 12:45:00Negative *NA*(02/11/18 6:45 AM)[facility] RoeqpxmOHQROSXSCR2545-04-32 12:45:00Normal (02/11/18 6:45 AM)[facility] DhcbrdsPWIYZUNHXJ8990-64-74 12:45:000.0[facility] VeaughgAAQESJMSKU9472-07-90 12:45:001+ (02/11/18 6:45 AM)[facility] KQAKAYJETL6164-58-79 12:45:001+ *ABN*(02/11/18 6:45 AM)[facility] JMDYRKDAZH1265-91-74 12:45:003.0[facility]
[2020-10-18 13:25] LABS: Absolute Lymphocytes (CBC) 1.9 K/uL (0.7-4.9); Basophils % 0.9 % (0-1.3); Hematocrit 37.7 % (36.0-45.0); Lymphocytes % 31.4 % (15.3-44.8); MPV 8.4 fL (7.6-11.3); RBC Red Blood Cell Count 4.91 M/uL (3.86-4.86)
[2020-10-18] MEDS ORDERED: dexAMETHasone 10 MG/ML VIAL ONE (15:02)
--- NOTE | 2020-10-18 15:59 | EDPHYS ---
Physician Documentation [facility] Name: Milli Mijares Age: 35 yrs Sex: Female : 1985 Arrival Date: 10/18/2020 Time: 07: Bed 20 Private MD: ED Physician Gibson Munoz HPI: 10/18 09:25 This 35 yrs old Female presents to ER via Ambulatory with complaints of Eye jmm Pain. 09:25 Onset: The symptoms/episode began/occurred gradually, 2 week(s) ago. Aggravated by jmm nothing. Alleviated by nothing. Associated signs and symptoms: Pertinent positives: fever. The patient has not experienced similar symptoms in the past. 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 - Social history:: Smoking status: Patient denies any tobacco usage or history of. ROS: 09:25 Constitutional: Positive for fever. jmm 09:25 Eyes: Positive for itching. 09:25 All other systems are negative. Exam: 09:25 Constitutional: This is a well developed, well nourished patient who is awake, alert, jmm and in no acute distress. Head/Face: atraumatic. Eyes: EOMI, no conjunctival erythema appreciated 09:25 Neck: Trachea midline, Supple Chest/axilla: Normal chest wall appearance and motion. Cardiovascular: Regular rate and rhythm. No edema appreciated Respiratory: Normal respirations, no respiratory distress appreciated Abdomen/GI: Non distended, soft 09:25 Skin: General appearance color normal MS/ Extremity: Moves all extremities, no obvious deformities appreciated, no edema noted to the lower extremities Neuro: Awake and alert, normal gait Psych: Behavior is normal, Mood is normal, Patient is cooperative and pleasant 09:25 Eyes: Conjunctiva: injected, bilaterally. 09:25 ENT: TM's: erythema, that is mild, on the left, Posterior pharynx: erythema, that is mild. Vital Signs: 07:27 BP 179 / 92; Pulse 89; Resp 16; Temp 97.4; Pulse Ox 100% on R/A; Pain 5/10; hb 11:36 BP 149 / 91; Pulse 84; Resp 16; Pulse Ox 98% on R/A; Pain 0/10; ap3 12:46 BP 150 / 90; Pulse 68; Resp 17; Pulse Ox 99% on R/A; ap3 13:46 BP 148 / 94; Pulse 76; Pulse Ox 99% on R/A; ap3 15:30 BP 103 / 68; Pulse 82; Resp 19; Pulse Ox 100% on R/A; ap3 MDM: 08:17 Patient medically screened. [facility] 15:57 Data reviewed: vital signs, nurses notes. Counseling: I had a detailed discussion with alice the patient and/or guardian regarding: the historical points, exam findings, and any diagnostic results supporting the discharge/admit diagnosis, the need for outpatient follow up, to return to the emergency department if symptoms worsen or persist or if there are any questions or concerns that arise at home. ED course: Patient is alert nontoxic in appearance in the ED. HPI and physical exam findings most likely consistent with a viral syndrome. I do not suspect an acute process at this time. Patient is otherwise given strict return precautions.. 10/18 08:20 Order name: BMP [facility] 10/18 15:45 Interpretation: Abnormal. [facility] 10/18 08:20 Order name: CBC with Diff; Complete Time: 13:47 [facility] 10/18 08:20 Order name: [place] Screen Profile; Complete Time: 13:13 [facility] 10/18 08:20 Order name: Flu; Complete Time: 11:32 [facility] 10/18 08:20 Order name: Strep; Complete Time: 11:25 [facility] 10/18 08:20 Order name: Saline Lock; Complete Time: 09:52 [facility] 10/18 11:24 Order name: Throat Culture [facility] 10/18 11:55 Order name: SARS-COV-2 RT PCR; Complete Time: 12:05 ED[facility] Administered Medications: 14:44 Drug: Decadron - Dexamethasone 10 mg Route: IVP; Site: right antecubital; ld1 16:10 Follow up: Response: No adverse reaction ap3 Disposition Summary: 10/18/20 15:58 Discharge Ordered Location: Home [facility] Condition: Stable [facility] Diagnosis - Viral syndrome [facility] Followup: [facility] - With: Private Physician - When: 2 - 3 days - Reason: Recheck today's complaints, Continuance of care, Re-evaluation by your physician Discharge Instructions: - Discharge Summary Sheet alice - Allergic Conjunctivitis, Adult alice Forms: - Medication Reconciliation Form alice - Thank You Letter alice - Antibiotic Education alice - Prescription Opioid Use alice Signatures: Dispatcher [employer] EDMS Gregorio Lucas PA PA jmm Baxter, Heather, RN RN Marcy Hurley RN RN ld1 Naomi Salinas RN ap3 Corrections: (The following items were deleted from the chart) 10:57 08:20 CORONAVIRUS+MR.LAB.BRZ ordered. EDMS EDMS
--- NOTE | 2020-10-18 15:59 | ER ---
Nurse's Notes [facility] Name: Milli Mijares Age: 35 yrs Sex: Female : 1985 Arrival Date: 10/18/2020 Time: 07:27 Bed 20 Private MD: Diagnosis: Viral syndrome Presentation: 10/18 07:27 Chief complaint: Bilateral eye pain and itching x 2 weeks, blurred vision and chills hb since yesterday. Denies injury/fever. Coronavirus screen: At this time, the client does not indicate any symptoms associated with coronavirus-19. Ebola Screen: No symptoms or risks identified at this time. Initial Sepsis Screen: Does the patient meet any 2 criteria? No. Patient's initial sepsis screen is negative. Does the patient have a suspected source of infection? No. Patient's initial sepsis screen is negative. Risk Assessment: Do you want to hurt yourself or someone else? Patient reports no desire to harm self or others. Onset of symptoms was October 01, 2020. 07:27 Method Of Arrival: Ambulatory hb 07:27 Acuity: MARCELO 4 hb 07:38 Mechanism of Injury: eye irritation. The patient denies any loss of vision. 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 - Social history:: Smoking status: Patient denies any tobacco usage or history of. Screenin:38 Abuse screen: Denies threats or abuse. Nutritional screening: No deficits noted. ap3 Tuberculosis screening: No symptoms or risk factors identified. Fall Risk None identified. Assessment: 07:35 General: Appears in no apparent distress. Behavior is calm, cooperative, appropriate ap3 for age. Pain: Complains of pain in right eye and left eye Pain does not radiate. Pain currently is 6 out of 10 on a pain scale. Pain began 2-3 weeks ago Also complains of swelling around the eyes, and irritation. Neuro: Level of Consciousness is awake, alert, obeys commands, Oriented to person, place, time, situation, Appropriate for age Moves all extremities. Gait is steady, Speech is normal. Cardiovascular: Capillary refill < 3 seconds Patient's skin is warm and dry. Respiratory: Airway is patent Respiratory effort is even, unlabored, Respiratory pattern is regular, symmetrical. GI: No signs and/or symptoms were reported involving the gastrointestinal system. : No signs and/or symptoms were reported regarding the genitourinary system. EENT: Eyes slight swelling noted in bilateral eyes. Sclera/Cornea are clear in right eye and left eye. Derm: No signs and/or symptoms reported regarding the dermatologic system. Musculoskeletal: No signs and/or symptoms reported regarding the musculoskeletal system. 09:20 Reassessment: Patient and/or family updated on plan of care and expected duration. Pain ap3 level reassessed. Patient is alert, oriented x 3, equal unlabored respirations, skin warm/dry/pink. 11:40 Reassessment: No changes from previously documented assessment. Patient and/or family ap3 updated on plan of care and expected duration. Pain level reassessed. Patient is alert, oriented x 3, equal unlabored respirations, skin warm/dry/pink. Vital Signs: 07:27 BP 179 / 92; Pulse 89; Resp 16; Temp 97.4; Pulse Ox 100% on R/A; Pain 5/10; hb 11:36 BP 149 / 91; Pulse 84; Resp 16; Pulse Ox 98% on R/A; Pain 0/10; ap3 12:46 BP 150 / 90; Pulse 68; Resp 17; Pulse Ox 99% on R/A; ap3 13:46 BP 148 / 94; Pulse 76; Pulse Ox 99% on R/A; ap3 15:30 BP 103 / 68; Pulse 82; Resp 19; Pulse Ox 100% on R/A; ap3 ED Course: 07:27 Patient arrived in ED. hb 07:28 Triage completed. hb 07:28 Arm band placed on. hb 07:35 Naomi Salinas, PAUL is Primary Nurse. ap3 07:39 Patient has correct armband on for positive identification. Bed in low position. Call ap3 light in reach. Side rails up X 1. Pulse ox on. NIBP on. Door closed. Noise minimized. 07:53 [facility] 07:53 Gibson Munoz MD is Attending Physician. alice 09:34 Inserted saline lock: 20 gauge in right antecubital area, using aseptic technique. ap3 Blood collected. 16:09 No provider procedures requiring assistance completed. IV discontinued, intact, ap3 bleeding controlled, No redness/swelling at site. Pressure dressing applied. Administered Medications: 14:44 Drug: Decadron - Dexamethasone 10 mg Route: IVP; Site: right antecubital; ld1 16:10 Follow up: Response: No adverse reaction ap3 Outcome: 15:58 Discharge ordered by . alice 16:09 Discharged to home ambulatory. ap3 16:09 Condition: good 16:09 Discharge instructions given to patient, Instructed on discharge instructions, follow up and referral plans. medication usage, Demonstrated understanding of instructions, follow-up care, medications. 16:10 Patient left the ED. ap3 Signatures: Gregorio Lucas PA PA jmm Baxter, Heather, RN RN hb Prokisch, Amanda, RN RN ap3 Marcy Hurley RN RN ld1
[2020-10-18 16:30] VITALS: TEMP 97.4
[2020-10-18 16:36] VITALS: BP 103/68; O2SAT 100
[2020-10-18 18:34] LABS: Potassium 3.5 mmol/L (3.5-5.1)
== END 2020-10-18 16:10 | disposition home or self-care (01) ==
LOC: ER 06:56
DX: B34.9 Viral infection, unspecified (principal); Z20.822 Contact with and (suspected) exposure to COVID-19
CPT/HCPCS: 36415; 80048; 85025; 86308; 87070; 87081; 87804; 96374; 99284; J1100; U0003